=== PATIENT | male | born 1970 | race Caucasian/White ===

== ENCOUNTER → 2016-11-19 | Outpatient (REF) | payer BC | LOC: M LAB REF 09:02 | PROVIDERS: ATTEND Physician Assistant Medical | DX: J02.9 Acute pharyngitis, unspecified (principal) ==

== ENCOUNTER 2021-04-08 10:09 | Emergency (ER) | payer BC ==
[~2021-04-08] VITALS: Ht 172.7 cm; Wt 100.0 kg
--- OUTSIDE RECORDS SUMMARY | 2021-04-08 10:20 | CCD ---
Author Author [facility] Organization [facility] Address Unknown Phone Unavailable Support Name Relationship Address Phone [facility] Next Of [address] [place] [address] LILY CLEMENTS Next Of [address] [place] [address] ROHAN CLEMENTS Next Of Kin [address] [place] [address] Re-disclosure Warning The records that you are about to access may contain information from federally-assisted alcohol or drug abuse programs. If such information is present, then the following federally mandated warning applies: This information has been disclosed to you from records protected by federal confidentiality rules (42 CFR part 2). The federal rules prohibit you from making any further disclosure of this information unless further disclosure is expressly permitted by the written consent of the person to whom it pertains or as otherwise permitted by 42 CFR part 2. A general authorization for the release of medical or other information is NOT sufficient for this purpose. The Federal rules restrict any use of the information to criminally investigate or prosecute any alcohol or drug abuse patient.The records that you are about to access may contain highly sensitive health information, the redisclosure of which is protected by Article 27-F of the [facility] Public Health law. If you continue you may have access to information: Regarding HIV / AIDS; Provided by facilities licensed or operated by the [facility] Office of Mental Health; or Provided by the [facility] Office for People With Developmental Disabilities. If such information is present, then the following [facility] mandated warning applies: This information has been disclosed to you from confidential records which are protected by state law. State law prohibits you from making any further disclosure of this information without the specific written consent of the person to whom it pertains, or as otherwise permitted by law. Any unauthorized further disclosure in violation of state law may result in a fine or assisted sentence or both. A general authorization for the release of medical or other information is NOT sufficient authorization for further disc losure. Family History Family Member Name Family Member Gender Family Member Status Date o f Status Description Data Source(s) Unknown Unknown Problem [facility] ([facility]) Medications No Information Insurance Providers Payer name Policy type / Coverage type Policy ID Covered libertarian ID Covered libertarian's relationship to gautam Policy Gautam Plan Information [place]/307 [id number] SP [id number] [employer] Commercial [id number] Self [id number] [employer] P [id number] [place] [id number] [facility] SELF INSURED [id number] SP [id number] [place] [place] PPO 302/307 [id number] SP [id number] [facility] [id number] [id number] [facility] [id number] 18 [id number] Problems, Conditions, and Diagnoses No Information Surgeries/Procedures No Information Results ID Date Data Source [id number] 04/04/2021 12:00:00 AM EDT [facility] Name Value Range Interpretation Code Description Data Mayra rce(s) Supporting Document(s) PCR POSITIVE [facility] This lab was ordered by [facility] are and reported by [facility]. Procedure Social History No Information
[2021-04-08] MEDS ORDERED: ACETAMINOPHEN 500 MG TAB PO ONE (11:00)
--- OUTSIDE RECORDS SUMMARY | 2021-04-08 13:48 | CCD ---
Author Author [facility] Organization [facility] Address Unknown Phone Unavailable Support Name Relationship Address Phone [facility] Next Of [address] [place] [address] LILY JAMES Next Of Kin [address] [place] [address] ROHAN JAMES Next Of [address] [place] [address] Re-disclosure Warning The records that you are [...] is protected by Article 27-F of the [facility] Public Health law. If you continue you may have access to information: Regarding HIV / AIDS; Provided by facilities licensed or operated by the [facility] Office of Mental Health; or Provided by the [facility] Office for People With Developmental Disabilities. If such information is present, then the following [facility] mandated warning applies: This information has been [...] law may result in a fine or [place] [facility] sentence or both. A general authorization for [...] type / Coverage type Policy ID Covered constitution party ID Covered constitution party's relationship to gautam Policy Gautam Plan Information [employer] [place] P[place] 302/307 [id number] SP [id number] [employer] Commercial [id number] Self [id number] [employer] P [id number] [place] [id number] [facility] SELF INSURED [id number] SP [id number] [place] [place] PPO 302/307 [id number] SP [id number] [facility] [id number] 18 [id number] [facility] [id number] 18 [id number] Problems, Conditions, and Diagnoses No Information Surgeries/Procedures No Information Results ID Date Data Source [id number] 04/04/2021 12:00:00 AM EDT [facility] Name Value Range Interpretation Code Description Data Mayra rce(s) Supporting Document(s) PCR POSITIVE [facility] This lab was ordered by [facility] are and reported by [facility]. Procedure Social History No Information
[2021-04-08] MEDS ORDERED: ONDANSETRON 4MG/2ML VIAL IV ONE (13:50)
[2021-04-08 14:33] LABS: BASO % 0.3 % (0.0-1.0); HEMATOCRIT 43.9 % (42.0-52.0); HEMOGLOBIN 15.6 g/dl (13.5-17.5); LYMPH # 0.4 10^3/uL (1.5-5.0); LYMPH % 10.6 % (24.0-44.0); MEAN CORPUSCULAR HEMOGLOBIN 30.4 pg (27.0-33.0); MEAN CORPUSCULAR HGB CONC 35.5 g/dl (32.0-36.5); MEAN CORPUSCULAR VOLUME 85.6 fl (80.0-96.0); MONO # 0.3 10^3/uL (0.0-0.8); MONO % 6.6 % (2.0-8.0); NEUTROPHILS # 3.3 10^3/uL (1.5-8.5); PLATELET COUNT, AUTOMATED 137 10^3/uL (150-450); RED BLOOD COUNT 5.13 10^6/uL (4.30-6.10)
[2021-04-08 14:44] LABS: INR 0.97; PROTHROMBIN TIME 13.3 SECONDS (12.7-14.5)
[2021-04-08 14:45] LABS: PARTIAL THROMBOPLASTIN TIME 44.3 SECONDS (25.9-37.0)
[2021-04-08 14:47] LABS: D-DIMER QUANT 643.85 ng/ml (<500)
[2021-04-08 14:51] LABS: ALBUMIN 3.5 GM/DL (3.2-5.2); ALT/SGPT 67 U/L (12-78); BILIRUBIN,DIRECT 0.4 MG/DL (0.0-0.2); BLOOD UREA NITROGEN 20 MG/DL (7-18); C REACTIVE PROTEIN QUANTITATIV 6.11 MG/DL (0.00-0.30); CALCIUM LEVEL 8.6 MG/DL (8.5-10.1); CARBON DIOXIDE LEVEL 20 MEQ/L (21-32); CHLORIDE LEVEL 106 MEQ/L (98-107); CK-MB VALUE MASS < 1.0 NG/ML (<3.6); CPK CREATINE PHOSPHOKINASE 90 U/L (39-308); CREATININE FOR GFR 1.34 MG/DL (0.70-1.30); FERRITIN 810 NG/ML (26-388); GLOMERULAR FILTRATION RATE 59.8 (>56); GLUCOSE, FASTING 113 MG/DL (70-100); LDH LACTATE DEHYDROGENASE 262 U/L (87-241); MAGNESIUM LEVEL 1.8 MG/DL (1.8-2.4); MB/CK RELATIVE INDEX 1.11 (< OR =4); POTASSIUM SERUM 3.3 MEQ/L (3.5-5.1); SODIUM LEVEL 137 MEQ/L (136-145); TROPONIN I < 0.02 NG/ML (< 0.10)
--- NOTE | 2021-04-08 15:57 | REP ---
INDICATION: covid dizziness, cough. COMPARISON: None. TECHNIQUE: AP portable chest. FINDINGS: Lungs adequately inflated there are patchy bibasilar and peripheral mid lung zone atelectasis or infiltrates left greater than right. No pleural effusion or dense consolidation with air bronchograms. The upper lung zones are clear. Heart not grossly enlarged. There is no vascular redistribution or edema. The aorta and airway are intact. Bones show no acute finding. IMPRESSION: 1. Bilateral basilar and mid lung zone peripheral infiltrates and subsegmental atelectasis. Pattern could certainly represent COVID pneumonia or other findings. No pleural effusion or dense consolidation with air bronchograms. 2. No gross cardiomegaly vascular redistribution or edema. The aorta and airway intact. Bones without acute finding. <Electronically signed by Howie Parker > 04/08/21 [id number]
--- NOTE | 2021-04-08 16:18 | REP ---
INDICATION: bilat calf pain, elevated d-dimer, covid +. COMPARISON: None. TECHNIQUE: Multiple ultrasonographic images of the deep venous structures of the bilateral lower extremity were obtained from the inguinal ligament to the ankle. Venous compression techniques, color doppler imaging, and augmentation techniques were also obtained where appropriate. As per the ACR guidelines the anterior tibial vein can not be effectively evaluated. Only compression techniques in the calf on the peroneal and posterior tibial veins was attempted/performed. FINDINGS: There is no abnormal echogenic material seen within any of the visualized deep venous structures that would suggest acute thrombosis. Coaptation is unremarkable throughout. Doppler interrogation shows an expected response to respiratory variability and augmentation in the thigh. Compression techniques in the calf showed no abnormality. The color flow images show what appears to be a normal vascular pattern throughout the thigh. IMPRESSION: There is no ultrasonographic evidence of deep venous thrombosis involving any of the visualized deep venous structures of the bilateral lower extremity as described above. <Electronically signed by Roberto Campos > 04/08/21 [id number]
[2021-04-08] MEDS ORDERED: ZOFR4TAB16 PO (17:45)
[2021-04-08 18:00] VITALS: BP 126/84
--- NOTE | 2021-04-09 06:38 | ECGEPIP ---
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
== END 2021-04-08 18:09 | disposition home or self-care (01) ==
LOC: M ED 10:09
DX: U07.1 COVID-19 (principal); J12.89 Other viral pneumonia; R11.10 Vomiting, unspecified; R94.31 Abnormal electrocardiogram [ECG] [EKG]
CPT/HCPCS: 71045; 80053; 82248; 82550; 82553; 82728; 83605; 83615; 83735; 84484; 85025; 85379; 85384; 85610; 85730; 86140; 93005; 93970; 96374; 99284; J2405; U0002

== ENCOUNTER 2021-04-10 08:49 | Outpatient (CLI) | payer BC ==
--- NOTE | 2021-04-08 17:49 | IPNPDOC ---
Subjective Date Seen The patient was seen on 04/08/21. Subjective Chief Complaint/HPI Mr. Clements is a 50 year old male was recently found to have COVID 19 infection and agreed to monoclonal antibodies. Patient denies any recent travel or sick contacts. He has heard that in the office, people are coming down with COVID 19. He may have caught it at work. Last Thursday (04/02/21), patient started to have COVID like symptoms. He had headache, fever/chills, cough, nausea with vomiting, and diarrhea. His throat was also sore from the vomiting. Last Thursday (04/03/21), he went to [facility] urgent [facility] and was tested positive for COVID. He comes into our ED today for nausea and dry heaving. He had Zofran and has felt much better. Appetite is poor, but he can still taste. He was not hypoxic at room air or with exertion. We discussed risk and benefits of monoclonal antibodies. He was agreeable to receiving monoclonal antibodies and has signed consent to receive monoclonal antibodies. Past medical history 1. Nephrolithiasis Past surgical history Denies any surgeries in the past Family history Denies any known medical history in parents Social history Denies smoking, denies alcohol, denies recreational drug use Constitutional: Reports: Chills, Fever, Malaise Eyes: Denies: Vision change ENT: Reports: Head Aches, Sore Throat (from vomiting and dry heaving) Skin: Denies: Rash Pulmonary: Reports: Cough; Denies: Dyspnea Cardiovascular: Denies: Chest Pain Gastrointestinal: Reports: Nausea, Vomiting, Abdominal Pain, Diarrhea Genitourinary: Denies: Dysuria Hematologic: Denies: Bruising Neurological: Denies: Numbness Psych: Denies: Anxiety, Depression Objective Physical Examination General Exam: Positive: Alert, Cooperative Eye Exam: Positive: EOMI; Negative: Sclera icteric ENT Exam: Positive: Atraumatic Neck Exam: Positive: Supple Chest Exam: Positive: Clear to auscultation, Diminished Heart Exam: Positive: Tachycardic, Regular Rhythm Abdomen Exam: Positive: Normal bowel sounds, Soft; Negative: Tenderness Extremity Exam: Negative: Edema Neuro Exam: Positive: Normal Speech Psych Exam: Positive: Mental status NL, Anxiety Assessment /Plan Plan/VTE VTE Prophylaxis Ordered?: No (Outpatient procedure) Plan 1. COVID 19 -Patient is positive for COVID 19 infection -Patient is at risk for progression of disease -Discussed risks and benefits of monoclonal antibodies -Patient is agreeable. Monoclonal antibodies consent form has been filled out -Monoclonal antibodies have been ordered Patient should follow up with PCP after monoclonal antibodies have been given. BELINDA KHAN DO Apr 08, 2021 17:49
[~2021-04-10] VITALS: Ht 167.6 cm; Wt 117.9 kg
[~2021-04-10 08:49] MED LIST: ACETAMINOPHEN TAB 650MG DOSE (2X325MG) PO PRN; CASIRIVIMAB (REGN10933) 600 MG, IMDEVIMAB (REGN10987) 600 MG in NS 250 ML IV ONE; ZOFR4TAB16 PO
[2021-04-10] MEDS ORDERED: diphenhydrAMINE 50MG/ML VIAL (J1200) IV PRN (09:00)
[2021-04-10] MEDS ORDERED: NS 1,000 ML IV SCH (09:00)
[2021-04-10] MEDS ORDERED: ALBUTEROL SULFATE 2.5 MG/0.5 ML INH NEB SOLN INH PRN (09:00)
[2021-04-10] MEDS ORDERED: CASIRIVIMAB/IMDEVIMAB 1,200 MG in NS 250 ML IV ONE (09:00)
[2021-04-10] MEDS ORDERED: methylPREDNISolone 125MG 2ML VIAL IV PRN (09:00)
[2021-04-10] MEDS ORDERED: ALBUTEROL 90 MCG/ACT 8GM HFA INHALER INH PRN (09:00)
[2021-04-10] MEDS ORDERED: EPINEPHrine INJ 1 MG/ML 1ML AMP IM PRN (09:00)
[2021-04-10 09:28] VITALS: BP 114/65
[2021-04-10 09:58] VITALS: BP 123/67
[2021-04-10] MEDS ORDERED: ONDANSETRON 4MG/2ML VIAL IV ONE (10:05)
[2021-04-10 10:28] VITALS: BP 130/69
[2021-04-10 11:28] VITALS: BP 127/75
== END 2021-04-10 11:28 | disposition home or self-care (01) ==
LOC: M OPCLI4PR 08:49
PROVIDERS: ATTEND Internal Medicine
DX: U07.1 COVID-19 (principal)
CPT/HCPCS: 96375; J2405; M0243

== ENCOUNTER 2022-08-28 04:07 | Emergency (ER) | payer BC ==
[~2022-08-28] VITALS: Ht 175.3 cm; Wt 112.1 kg
[~2022-08-28 04:07] MED LIST changes: -ACETAMINOPHEN TAB 650MG DOSE (2X325MG) PO PRN; -CASIRIVIMAB (REGN10933) 600 MG, IMDEVIMAB (REGN10987) 600 MG in NS 250 ML IV ONE
[2022-08-28 04:55] LABS: BASO % 0.3 % (0.0-1.0); EOS # 0.1 10^3/uL (0.0-0.5); EOS % 0.5 % (0.0-3.0); HEMOGLOBIN 16.1 g/dl (13.5-17.5); LYMPH # 1.5 10^3/uL (1.5-5.0); LYMPH % 14.6 % (24.0-44.0); MEAN CORPUSCULAR HEMOGLOBIN 31.1 pg (27.0-33.0); MEAN CORPUSCULAR VOLUME 88.8 fl (80.0-96.0); MONO # 0.9 10^3/uL (0.0-0.8); MONO % 9.1 % (2.0-8.0); NEUTROPHILS # 7.7 10^3/uL (1.5-8.5); NEUTROPHILS % 74.9 % (36.0-66.0); PLATELET COUNT, AUTOMATED 233 10^3/uL (150-450); RED BLOOD COUNT 5.18 10^6/uL (4.30-6.10); WHITE BLOOD COUNT 10.3 10^3/uL (4.0-10.0)
[2022-08-28 05:22] LABS: LIPASE 26 U/L (12-53)
[2022-08-28 05:24] LABS: CPK CREATINE PHOSPHOKINASE 415 U/L (46-171)
[2022-08-28 05:27] LABS: ALBUMIN 4.3 G/DL (3.2-5.2); ALKALINE PHOSPHATASE 86 U/L (46-116); ALT/SGPT 37 U/L (7.0-40); AST/SGOT 28 U/L (<34); BILIRUBIN,DIRECT 0.6 MG/DL (<0.4); BILIRUBIN,TOTAL 2.5 MG/DL (0.3-1.2); BLOOD UREA NITROGEN 20 MG/DL (9-23); CALCIUM LEVEL 9.5 MG/DL (8.5-10.1); CARBON DIOXIDE LEVEL 26 MMOL/L (20-31); CHLORIDE LEVEL 107 MMOL/L (98-107); CK-MB VALUE MASS 1.5 NG/ML (<3.6); CREATININE FOR GFR 1.24 MG/DL (0.70-1.30); GLOMERULAR FILTRATION RATE > 60.0 (>56); GLUCOSE, FASTING 105 MG/DL (60-100); MB/CK RELATIVE INDEX 0.36 (< OR =4); POTASSIUM SERUM 3.9 MMOL/L (3.5-5.1); SODIUM LEVEL 140 MMOL/L (136-145)
[2022-08-28] MEDS ORDERED: IBUPROFEN 600MG TAB PO ONE (06:30)
[2022-08-28 07:47] LABS: CK-MB VALUE MASS 1.3 NG/ML (<3.6)
[2022-08-28 07:48] LABS: MB/CK RELATIVE INDEX 0.3 (< OR =4)
[2022-08-28 08:17] VITALS: BP 138/85
== END 2022-08-28 08:25 | disposition home or self-care (01) ==
LOC: M ED 04:07
DX: S29.001A Unspecified injury of muscle and tendon of front wall of thorax, initial encounter (principal); Y04.8XXA Assault by other bodily force, initial encounter; Y92.009 Unspecified place in unspecified non-institutional (private) residence as the place of occurrence of the external cause; Y93.89 Activity, other specified; Y99.8 Other external cause status